=== PATIENT | male | born 1940 | race American Indian/Alaskan Native ===

== ENCOUNTER 2020-06-07 08:12 | Day surgery (SDC) | payer MEDICARE, OTHER ==
[~2020-06-07] VITALS: Ht 180.3 cm; Wt 108.0 kg
[~2020-06-07 08:12] MED LIST: ASPIRIN EC81 MG PO; CRESTOR20 MG PO; DILTIAZEM ER240 M2 PO; FERRETTS325 MG; ISOSORBIDE MONO30 MG PO; LANTUS SOL100 UNIT/1 SUB-Q; LEVOTHYROXINE50 MCG PO; LISINOPRIL40 MG PO; METOPROLOL TART50 MG PO; NOVOLOG FL100 UNIT/1 SUB-Q; PROTONIX40 MG PO; XARELTO20 MG PO
--- NOTE | 2020-06-07 10:09 | NUR ---
06/07/20 [facility] Iman Phipps 1000-PT TO PACU IN LL POSITION. EYES CLOSED SNORING UNRESPONSIVE TO VOICE OR TACTILE STIMULATION. BREATHING UNLABORED. SPO2 >95% ON 6 L O2 VIA SIMPLE MASK. REPORT RECEIVED FROM [employer] ENGINEER AND TECHNICIAN [facility]IC[facility]. 1007- PT RESPONDS TO VOICE AND TACTILE STIMULI. KEEPS EYES CLOSED. FOLLOWS COMMANDS AND REPOSITIONS SELF IN BED. BREATHING EASY AND UNLABORED. SPO2 >95% O2 TITRATED DOWN TO ROOM AIR.
--- NOTE | 2020-06-07 11:52 | OR ---
[facility] [address], [place] [address] Signed DATE OF OPERATION: 06/07/2020 SURGEON: Tavo Don MD PREOPERATIVE DIAGNOSES: 1. Screening. 2. Internal hemorrhoids. 3. Anemia with hemoglobin 12.0 and mean cell volume 95. POSTOPERATIVE DIAGNOSES: 1. Minimal internal hemorrhoids. 2. Enlarged indurated prostate (right greater than left). PROCEDURE: Colonoscopy without biopsy. ESTIMATED BLOOD LOSS: None. INDICATIONS: Jignesh is a 79-year-old obese, diabetic gentleman, asked to see me for a followup screening colonoscopy; he was negative back in 2011. He was known to have just a little bit internal hemorrhoids. Otherwise, he said he has been doing pretty well. He really has no lower GI complaints. There is no family history of colon cancer or polyps. He does take iron tablets. We could see on his preoperative blood work that he had a hemoglobin of 12.0 with a mean cell volume 95. In the office, I gave Jignesh a pamphlet on colonoscopy and we looked at that together along with the risks including, but not limited to gas bloating, crampy abdominal pain, bleeding, perforation requiring surgery, and missed diagnosis. Also, because of his advanced age, medical issues, and his size, we asked an anesthesia provider help us with increased monitoring sedation with propofol. He had expressed understanding and wished to proceed. PROCEDURE NOTE: Jignesh was taken into our endoscopy suite and placed in the left lateral decubitus position. He was given monitored anesthesia care per our nurse lease broker. A digital rectal exam was performed. He does have an enlarged prostate with the right is certainly more significantly enlarged than the left. The adult colonoscope was introduced and advanced all around into the cecum under direct visualization of camera without difficulty. His prep was good. He had a couple areas of liquid stool, most of which was irrigated and suctioned out. We could easily see the appendiceal orifice and Electronically Signed By: TAVO DON MD 06/07/20 1152 PATIENT NAME: JIGNESH GILBERT JR OPERATIVE REPORT DATE OF : 40 REPORT #: [id number] PHYSICIAN: TAVO DON MD PCP: MASSIMO WALDRON REPORT IS CONFIDENTIAL AND NOT TO BE RELEASED WITHOUT AUTHORIZATION [address] [address] Signed the ileocecal valve. The scope was slowly withdrawn. We saw no pathology throughout the entire colon or rectum. Upon retroflexion of scope, there was no additional pathology noted above the anal canal some very tiny routine internal hemorrhoid tissue. After this, the gas was suctioned out and colonoscope was removed. Jignesh tolerated the procedure quite well. RECOMMENDATIONS: Give two negative colonoscopies and Jignesh's age just would probably be his last screening colonoscopy. If he desires an upper endoscopy because of ongoing anemia, we would be happy to help him in that regard. Tavo Don MD ALB/MODL /[id number] cc: MASSIMO WALDRON, Nurse Practitioner Tavo Don MD Copies: TAVO DON MD ~ Electronically Signed By: TAVO DON MD 06/07/20 1152 PATIENT NAME: JIGNESH GILBERT OPERATIVE REPORT DATE OF : 40 REPORT #: [id number] PHYSICIAN: TAVO DON MD PCP: MASSIMO WALDRON-Aureliano REPORT IS CONFIDENTIAL AND NOT TO BE RELEASED WITHOUT AUTHORIZATION
== END 2020-06-07 10:40 | disposition home or self-care (01) ==
LOC: OPS 08:12 → DS 08:12 → OPS 09:45
PROVIDERS: Colon & Rectal Surgery
PROC: 0DJD8ZZ Inspection of Lower Intestinal Tract, Via Natural or Artificial Opening Endoscopic (ICD-10-PCS; principal; 2020-06-07 09:45)
DX: Z12.11 Encounter for screening for malignant neoplasm of colon (principal); K64.8 Other hemorrhoids; N40.1 Benign prostatic hyperplasia with lower urinary tract symptoms; N13.8 Other obstructive and reflux uropathy; D64.9 Anemia, unspecified; E11.9 Type 2 diabetes mellitus without complications; I10 Essential (primary) hypertension; E03.9 Hypothyroidism, unspecified; I48.92 Unspecified atrial flutter; G47.33 Obstructive sleep apnea (adult) (pediatric); E66.9 Obesity, unspecified; Z79.899 Other long term (current) drug therapy; Z79.82 Long term (current) use of aspirin; Z79.4 Long term (current) use of insulin; Z68.33 Body mass index [BMI] 33.0-33.9, adult
CPT/HCPCS: J0690; J2704; J7121